=== PATIENT | female | born 1960 | race American Indian/Alaskan Native ===

== ENCOUNTER 2017-12-12 12:45 | Inpatient (IN) | payer MEDICARE ==
[2017-12-12] MEDS ORDERED: D5NS 1,000 ML IV SCH (14:00)
[2017-12-12] MEDS ORDERED: VITAMIN B-1 100 MG, FOLVITE 1 MG, INFUVITE 10 ML in NACL 0.9% 1000 ML 1,000 ML IV ONE (14:30)
[2017-12-12 14:46] LABS: Basophils # (Auto) 0.1 K/mm3 (0.0-0.1); Basophils % (Auto) 0.7 % (0.0-1.8); Eosinophils # (Auto) 0.1 K/mm3 (0.0-0.4); Hematocrit 38.6 % (30.3-42.9); Hemoglobin 12.9 gm/dl (10.1-14.3); Lymphocytes # (Auto) 3.5 K/mm3 (1.2-5.4); Lymphocytes % (Auto) 48.8 % (13.4-35.0); Mean Corpuscular HGB Conc 33 % (30-34); Mean Corpuscular Hemoglobin 31 pg (28-32); Mean Corpuscular Volume 91 fl (79-97); Monocytes # (Auto) 0.6 K/mm3 (0.0-0.8); Monocytes % (Auto) 7.7 % (0.0-7.3); Platelet Count 180 K/mm3 (140-440); Red Blood Count 4.23 M/mm3 (3.65-5.03); Red Cell Distribution Width 12.2 % (13.2-15.2)
[2017-12-12] MEDS ORDERED: DESYREL PO PRN (15:04)
[2017-12-12 15:07] LABS: Alanine Aminotransferase 43 units/L (7-56); Albumin 4.4 g/dL (3.9-5); BUN/Creatinine Ratio 33; Blood Urea Nitrogen 13 mg/dL (7-17); Calcium 9.7 mg/dL (8.4-10.2); Hemolysis Index 4
[2017-12-12 15:09] LABS: Lipase 20 units/L (13-60)
[2017-12-12] MEDS ORDERED: HABITROL TD PRN (15:09)
[2017-12-12] MEDS ORDERED: TYLENOL PO PRN ×2 (15:10→21:34)
[2017-12-12] MEDS ORDERED: MOTRIN PO PRN (15:11)
[2017-12-12] MEDS ORDERED: SENOKOT PO PRN (15:12)
[2017-12-12] MEDS ORDERED: IMODIUM PO PRN (15:12)
[2017-12-12] MEDS ORDERED: DULCOLAX PR PRN (15:12)
[2017-12-12] MEDS ORDERED: ALUM-MAG HYDROX-SIMETH 200-200-20MG/5ML PO PRN (15:14)
[2017-12-12] MEDS ORDERED: ZOFRAN IV PRN ×2 (15:15→21:34)
[2017-12-12] MEDS ORDERED: ZOFRAN PO PRN (15:16)
[2017-12-12] MEDS ORDERED: ATIVAN IV PRN ×2 (15:21→15:24)
[2017-12-12] MEDS ORDERED: ROBAXIN PO PRN (15:22)
[2017-12-12] MEDS ORDERED: BENTYL PO PRN (15:22)
[2017-12-12] MEDS ORDERED: VISTARIL PO PRN (15:23)
[2017-12-12] MEDS ORDERED: REQUIP PO PRN (15:50)
[2017-12-12] MEDS ORDERED: VISTARIL IM PRN (15:51)
[2017-12-12] MEDS: ATIVAN PO SCH ×3 (17:43→20:10)
[2017-12-12] MEDS: CATAPRES PO SCH ×3 (17:43→23:08)
--- NOTE | 2017-12-12 21:03 | History and Physical Report ---
History of Present Illness Date of examination: 12/12/17 Date of admission: 12/12/17 13:42 Chief complaint: Chief complaint: Direct admission for alcohol dependence and substance abuse in the form of crack cocaine. History of present illness: History of present illness: 57-year-old -[place] female with history of EtOH abuse and crack cocaine dependence for the last many years comes in for detoxification and stabilization. Patient has been consuming all called initially in lower quantities at the age of 25. Patient has been doing 12 pack beer for many years in the last 10-15 years. Patient has been off alcohol for 15 years and crack cocaine for 15 years but unable to tell me and what age she stopped them and what age she restarted. The patient is about 12 beers every day and also smokes crack cocaine on a regular basis. Patient also has a schizophrenia and is noncompliant with her medications because of substance abuse. Patient wants to be stabilized here and be admitted to [facility] substance abuse center for further treatment. Patient does not have any withdrawal symptoms at this point. Not tremulous. No fever no chills. No shortness of breath. Past History Past Medical History: other (schizophrenia) Past Surgical History: No surgical history Social history: smoking, alcohol abuse (crack cocaine smoking), full code, other Family history: hypertension Medications and Allergies Allergies Allergy/AdvReac Type Severity Reaction Status Date / Time haloperidol [From Haldol] Allergy MAKES PT Unverified 12/12/17 13:43 WALKING STIFF. Home Medications Medication Instructions Recorded Confirmed Last Taken Type No Known Home Medications [No 12/12/17 12/12/17 Unknown History Reported Home Medications] Active Meds: Active Medications Acetaminophen (Tylenol) 500 mg PO Q4H PRN PRN Reason: Fever >100.4 Al Hydrox/Mg Hydrox/Simethicone (Alum-Mag Hydrox-Simeth [id number]/5ml) 30 ml PO Q6H PRN PRN Reason: Indigestion Bisacodyl (Dulcolax) 10 mg VT QDAY PRN PRN Reason: Laxative Effect Clonidine HCl (Catapres) 0.1 mg PO Q4HR YOLI Last Admin: 12/12/17 17:44 Dose: Not Given Dicyclomine HCl (Bentyl) 20 mg PO Q6H PRN PRN Reason: Dyspepsia Folic Acid (Folvite) 1 mg PO DAILY [facility] Hydroxyzine HCl (Vistaril) 50 mg IM Q6H PRN PRN Reason: BREAKTHROUGH ANXIETY Hydroxyzine Pamoate (Vistaril) 50 mg PO Q6H PRN PRN Reason: Anxiety Dextrose/Sodium Chloride (D5ns) 1,000 mls @ 100 mls/hr IV DIRECT YOLI Thiamine HCl 100 mg/ Folic Acid 1 mg/ Multivitamins/Minerals 10 ml/ Sodium Chloride 1,011.2 mls @ 150 mls/hr IV ONCE ONE Stop: 12/12/17 21:14 Last Admin: 12/12/17 17:32 Dose: 150 mls/hr Ibuprofen (Motrin) 600 mg PO Q8H PRN PRN Reason: Pain, Mild <5 Loperamide HCl (Imodium) 2 mg PO Q8HR PRN PRN Reason: Diarrhea Lorazepam (Ativan) 2 mg IV Q4H PRN PRN Reason: SEIZURE Lorazepam (Ativan) 1 mg IV Q4H PRN PRN Reason: Agitation Lorazepam (Ativan) 1 mg PO Q4H [facility] Stop: 12/13/17 12:01 Last Admin: 12/12/17 20:10 Dose: Not Given Lorazepam (Ativan) 1 mg PO Q6H [facility] Stop: 12/14/17 10:01 Lorazepam (Ativan) 1 mg PO Q8H [facility] Stop: 12/15/17 08:01 Methocarbamol (Robaxin) 750 mg PO Q6H PRN PRN Reason: Muscle Spasm/ACHES Multivitamins (Theragran Tab) 1 each PO DAILY [facility] Nicotine (Habitrol) 21 mg TD DAILY PRN PRN Reason: Nicotine Cravings Ondansetron HCl (Zofran) 4 mg IV Q6H PRN PRN Reason: Nausea And Vomiting Ondansetron HCl (Zofran) 4 mg PO Q6HR PRN PRN Reason: Nausea And Vomiting Ropinirole HCl (Requip) 0.5 mg PO Q12H PRN PRN Reason: RESTLESS LEGS Senna (Senokot) 16.4 mg PO QHS PRN PRN Reason: Laxative Effect Thiamine HCl (Vitamin B-1) 100 mg PO QDAY [facility] Trazodone HCl (Desyrel) 50 mg PO QHS PRN PRN Reason: Insomnia Review of Systems All systems: negative Constitutional: no weight loss, no weight gain, no fever, no chills Ears, nose, mouth and throat: no swelling in mouth, no swelling in throat Breasts: deferred Cardiovascular: no chest pain, no orthopnea, no palpitations, no rapid/ irregular heart beat, no edema Respiratory: no cough, no cough with sputum, no excessive sputum, no hemoptysis , no shortness of breath, no dyspnea on exertion Gastrointestinal: no abdominal pain, no nausea, no vomiting, no diarrhea, no constipation, no change in bowel habits, no hematemesis, no coffee ground emesis Genitourinary Female: no dysuria, no urinary frequency, no urgency, no stress incontinence, no post void dribbling, no incomplete emptying, no urge incontinence Rectal: no pain Musculoskeletal: no neck stiffness, no neck pain, no shooting arm pain, no arm numbness/tingling, no low back pain, no shooting leg pain, no leg numbness/ tingling, no redness of joints Integumentary: no rash, no pruritis, no redness, no sores, no wounds, no jaundice, no boils Neurological: no paralysis, no weakness, no parathesias, no numbness, no seizures, no syncope Psychiatric: no anxiety, no memory loss, no change in sleep habits, no sleep disturbances, no insomnia, no hypersomnia, no change in appetite, no change in libido, no suicidal ideation, no disorientation, no hallucinations Endocrine: no cold intolerance, no heat intolerance, no polyphagia, no excessive thirst, no polydipsia, no polyuria, no nocturia Hematologic/Lymphatic: no easy bruising, no easy bleeding Allergic/Immunologic: no urticaria, no allergic rhinitis, no wheezing Exam - Physical Exam Narrative exam: Lying in bed comfortably. No signs of withdrawal - Constitutional Vitals: Temp Pulse Resp BP Pulse Ox 98.5 F 64 18 119/62 99 12/12/17 19:52 12/12/17 19:52 12/12/17 19:52 12/12/17 19:52 12/12/17 19:52 General appearance: Present: no acute distress, well-nourished - EENT Eyes: Present: PERRL ENT: hearing intact, clear oral mucosa - Neck Neck: Present: supple, normal ROM - Respiratory Respiratory effort: normal Respiratory: bilateral: CTA - Cardiovascular Heart rate: 54 Rhythm: regular Heart Sounds: Present: S1 & S2. Absent: rub, click - Extremities Extremities: no ischemia, pulses intact, pulses symmetrical, No edema Peripheral Pulses: within normal limits - Abdominal General gastrointestinal: Present: soft, non-tender, non-distended, normal bowel sounds Female genitourinary: Present: normal - Integumentary Integumentary: Present: clear, warm, dry - Musculoskeletal Musculoskeletal: gait normal, strength equal bilaterally - Psychiatric Psychiatric: appropriate mood/affect, intact judgment & insight - Neurologic Neurologic: CNII-XII intact, moves all extremities - Allied Health Allied health notes reviewed: nursing, case management Results - Labs CBC & Chem 7: 12/12/17 14:04 12/12/17 14:04 Labs: Laboratory Last Values WBC 7.2 K/mm3 (4.5-11.0) 12/12/17 14:04 RBC 4.23 M/mm3 (3.65-5.03) 12/12/17 14:04 Hgb 12.9 gm/dl (10.1-14.3) 12/12/17 14:04 Hct 38.6 % (30.3-42.9) 12/12/17 14:04 MCV 91 fl (79-97) 12/12/17 14:04 MCH 31 pg (28-32) 12/12/17 14:04 MCHC 33 % (30-34) 12/12/17 14:04 RDW 12.2 % (13.2-15.2) L 12/12/17 14:04 Plt Count 180 K/mm3 (140-440) 12/12/17 14:04 Lymph % (Auto) 48.8 % (13.4-35.0) H 12/12/17 14:04 [place] % (Auto) 7.7 % (0.0-7.3) H 12/12/17 14:04 Eos % (Auto) 2.0 % (0.0-4.3) 12/12/17 14:04 Baso % (Auto) 0.7 % (0.0-1.8) 12/12/17 14:04 Lymph # 3.5 K/mm3 (1.2-5.4) 12/12/17 14:04 [place] # 0.6 K/mm3 (0.0-0.8) 12/12/17 14:04 Eos # 0.1 K/mm3 (0.0-0.4) 12/12/17 14:04 Baso # 0.1 K/mm3 (0.0-0.1) 12/12/17 14:04 Seg Neutrophils % 40.8 % (40.0-70.0) 12/12/17 14:04 Seg Neutrophils # 3.0 K/mm3 (1.8-7.7) 12/12/17 14:04 PT 13.7 Sec. (12.2-14.9) 12/12/17 14:04 INR 1.00 (0.87-1.13) 12/12/17 14:04 Sodium 137 mmol/L (137-145) 12/12/17 14:04 Potassium 4.0 mmol/L (3.6-5.0) 12/12/17 14:04 Chloride 97.3 mmol/L (98-107) L 12/12/17 14:04 Carbon Dioxide 29 mmol/L (22-30) 12/12/17 14:04 Anion Gap 15 mmol/L 12/12/17 14:04 BUN 13 mg/dL (7-17) 12/12/17 14:04 Creatinine 0.4 mg/dL (0.7-1.2) L 12/12/17 14:04 Estimated GFR > 60 ml/min 12/12/17 14:04 BUN/Creatinine Ratio 33 % 12/12/17 14:04 Glucose 83 mg/dL (65-100) 12/12/17 14:04 Calcium 9.7 mg/dL (8.4-10.2) 12/12/17 14:04 Total Bilirubin 0.90 mg/dL (0.1-1.2) 12/12/17 14:04 AST 46 units/L (5-40) H 12/12/17 14:04 ALT 43 units/L (7-56) 12/12/17 14:04 Alkaline Phosphatase 62 units/L (35-129) 12/12/17 14:04 Total Protein 8.1 g/dL (6.3-8.2) 12/12/17 14:04 Albumin 4.4 g/dL (3.9-5) 12/12/17 14:04 Albumin/Globulin Ratio 1.2 % 12/12/17 14:04 Amylase 55 units/L (27-131) 12/12/17 14:04 Lipase 20 units/L (13-60) 12/12/17 14:04 Plasma/Serum Alcohol < 0.01 % (0-0.07) 12/12/17 14:04 - Imaging and Cardiology EKG: report reviewed (54/m sinus rhythm minimal ST elevation in anterior leads) Assessment and Plan Advance Directives: Yes (full code) VTE prophylaxis?: Chemical Plan of care discussed with patient/family: Yes - Patient Problems (1) EtOH dependence Current Visit: Yes Status: Chronic Qualifiers: Substance use status: in withdrawal Plan to address problem: Patient needs stabilization. Patient initiated on IV fluids banana bag and Ativan when necessary along with trazodone thiamine and folic acid. Patient also initiated on methocarbamol for muscle aches dicyclomine for abdominal discomfort hydroxyzine for mild anxiety and lorazepam 1 mg IV push every 4 hours for severe anxiety is the patient is not responding to lorazepam taper. (2) Cocaine abuse Current Visit: Yes Status: Chronic Plan to address problem: Patient initiated on remote telemetry clonidine 0.1 mg every 4 hours methocarbamol 750 mg every 6 hours when necessary ropinirole 0.5 mg 1 tablet every 12 hours when necessary for restless legs hydroxyzine for mild anxiety. (3) Schizophrenia in remission Current Visit: Yes Status: Chronic Plan to address problem: Patient is started on perphenazine and Cogentin (4) DVT prophylaxis Current Visit: Yes Status: Acute Plan to address problem: Heparin subcutaneously 5000 units every 12
[2017-12-12] MEDS ORDERED: PERCOCET 5/325 PO PRN (21:34)
[2017-12-12] MEDS ORDERED: SODIUM CHLORIDE FLUSH SYRINGE 10 ML IV PRN (21:34)
[2017-12-12] MEDS ORDERED: MORPHINE IV PRN (21:34)
[2017-12-12] MEDS ORDERED: TRILAFON PO PRN (21:43)
[2017-12-12] MEDS ORDERED: PEPCID IV SCH (22:00)
[2017-12-12] MEDS: COGENTIN PO SCH (23:07)
[2017-12-12] MEDS: SODIUM CHLORIDE FLUSH SYRINGE 10 ML IV SCH (23:07)
[2017-12-13] MEDS: ATIVAN PO SCH ×4 (00:35→11:21)
[2017-12-13] MEDS: CATAPRES PO SCH ×4 (01:42→15:10)
[2017-12-13 06:03] LABS: Hematocrit 37.2 % (30.3-42.9); Hemoglobin 12.2 gm/dl (10.1-14.3); Mean Corpuscular HGB Conc 33 % (30-34); Mean Corpuscular Hemoglobin 30 pg (28-32); Mean Corpuscular Volume 92 fl (79-97); Platelet Count 146 K/mm3 (140-440); Red Blood Count 4.03 M/mm3 (3.65-5.03); Red Cell Distribution Width 12.2 % (13.2-15.2)
[2017-12-13 06:48] LABS: Alanine Aminotransferase 42 units/L (7-56); Albumin 3.7 g/dL (3.9-5); BUN/Creatinine Ratio 28; Blood Urea Nitrogen 11 mg/dL (7-17); Hemolysis Index 10
[2017-12-13 07:56] LABS: Anisocytosis 1+; Band Neutrophils # (Manual) 0.1 K/mm3; Ovalocytes Rare; Platelet Estimate Appears Decreased; Tear Drop Cells Rare; Total Cells Counted 100
[2017-12-13] MEDS ORDERED: VITAMIN B-1 PO SCH (10:00)
[2017-12-13] MEDS ORDERED: THERAGRAN Tab PO SCH (10:00)
[2017-12-13] MEDS ORDERED: FOLVITE PO SCH (10:00)
[2017-12-13] MEDS ORDERED: PEPCID PO SCH (10:00)
[2017-12-13 10:07] VITALS: BP 116/58
[2017-12-13] MEDS: SODIUM CHLORIDE FLUSH SYRINGE 10 ML IV SCH (10:09)
[2017-12-13] MEDS: COGENTIN PO SCH (10:13)
[2017-12-13 12:18] LABS: Bilirubin,Urine NEG (Negative); Blood,Urine NEG (Negative); Color,Urine Yellow (Yellow); Protein,Urine <15 mg/dL mg/dL (Negative); RBC,Urine < 1.0 /HPF (0.0-6.0); Urobilinogen,Urine < 2.0 mg/dL (<2.0)
[2017-12-13 12:25] LABS: Amphetamine Screen,Urine PRESUMPTIVE NEGATIVE; Benzodiazepines Screen,Urine PRESUMPTIVE NEGATIVE; Cannabinoid Screen,Urine PRESUMPTIVE NEGATIVE; Methadone Screen,Urine PRESUMPTIVE NEGATIVE; Opiate Screen,Urine PRESUMPTIVE NEGATIVE
[2017-12-13 12:40] LABS: Cocaine Screen,Urine PRESUMPTIVE POSITIVE
--- NOTE | 2017-12-13 14:51 | Discharge Summary ---
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 Place consult to:: Psychiatry Notified:: FARZAD Phone number called:: [phone] Was contact made?: Yes If yes, spoke with:: FARZAD Time called:: 16:53 12/12/17 21:35 Consult to Dietitian/Nutrition [CONS] Routine Physician Instructions: Reason For Exam: Reason for Consult: Diet education 12/12/17 21:42 Consult to Mental Health [CONS] Routine Reason For Exam: EtOH dependence and schizophrenia Place consult to:: S Primary care physician: SCRIPT SUPERVISOR Hospitalization Condition: Stable Hospital course: Patient is a 57 yo woman with a history of schizophrenia, ETOH and cocaine abuse who was admitted to the [facility] for ETOH detox. She initially went to [place] for mental health issues but was turned away per patient. She is not in alcohol withdrawals, she is really not interested in cocaine detox as she says she is a "causal user". She actually wants mental health stabilization as she has been off her schizophrenic medications. She is not suicidal or homicidal. She appears to be homeless. Schizophrenia: refill her medications, she can go voluntary to [place] Etoh abuse and Cocaine abuse:counseling done. CIWA score is normal, not in withdrawals Disposition: DC-01 TO HOME OR SELFCARE Time spent for discharge: 32 minutes Core Measure Documentation - Palliative Care Palliative Care/ Comfort Measures: Not Applicable - Core Measures Any of the following diagnoses?: none - VTE Discharge Requirements Deep Vein Thrombosis/Pulmonary Embolism Present on Admission: No Has pt received <5 days of overlap therapy or INR<2.0: No Anticoagulant overlap therapy prescribed at discharge: No Contraindication No Overlap Therapy order at DC: Not Indicated Exam - Physical Exam Narrative exam: GEN: WDWN,unkempt, NAD, Awake, Alert, Orientated HEENT: NCAT, EOMI, PERRL, OP Clear NECK: supple, no adenopathy, no thyromegaly, no JVD CVS/HEART: RRR, normal S1S2, pulses present bilaterally CHEST/LUNGS: CTA B, Symmetrical chest expansion, good air entry bilaterally GI/Abdomen: soft, NTND, good bowel sounds, no guarding or rebound /Bladder: no suprapubic tenderness, no CVA or paraspinal tenderness EXT/Skin: no c/c/e, no obvious rash MSK: FROM x 4 Neuro: CN 2-12 grossly intact, no new focal deficits Psych: calm, disorganized, - Constitutional Vitals: Temp Pulse Resp BP Pulse Ox 98.5 F 61 18 116/58 100 12/13/17 08:02 12/13/17 10:07 12/13/17 08:02 12/13/17 10:07 12/13/17 08:02 Plan Activity: other (no strenous activities) Special Instructions: smoking cessation Follow up with: PRIMARY CARE, [Primary Care Provider] - 7 Days [facility] [Outside] - 48 Hours Prescriptions: traZODone [Desyrel] 50 mg PO QHS PRN #30 tablet PRN Reason: Insomnia Benztropine [Cogentin] 1 mg PO BID #60 tablet Nicotine [Habitrol] 21 mg TD DAILY PRN 7 Days patch PRN Reason: Nicotine Cravings Perphenazine [Trilafon] 4 mg PO TID 30 Days tablet Thiamine [Vitamin B-1] 100 mg PO QDAY #30 tablet
[2017-12-13] MEDS ORDERED: ATIVAN PO SCH (16:00)
[2017-12-14] MEDS ORDERED: ATIVAN PO SCH (16:00)
== END 2017-12-13 16:00 | disposition home or self-care (01) | DRG 885 ==
LOC: UNDOADMIN 12:45 → 2B-ACE 12:45
PROVIDERS: ADMIT Internal Medicine; ATTEND Internal Medicine
DX: F20.89 Other schizophrenia (principal); F10.20 Alcohol dependence, uncomplicated; F14.10 Cocaine abuse, uncomplicated; F17.290 Nicotine dependence, other tobacco product, uncomplicated; Z82.49 Family history of ischemic heart disease and other diseases of the circulatory system; Z91.19 Patient's noncompliance with other medical treatment and regimen; Z88.8 Allergy status to other drugs, medicaments and biological substances; Z71.51 Drug abuse counseling and surveillance of drug abuser
CPT/HCPCS: 36415; 80053; 80307; 80320; 81001; 82150; 83036; 83690; 85007; 85025; 85610; 93005; 93010; G0480; J3411; J7030

== ENCOUNTER 2018-02-19 20:34 | Emergency (ER) | payer MEDICARE ==
[2018-02-19 20:45] VITALS: BP 132/74
--- NOTE | 2018-02-19 21:42 | XRay Report ---
FINAL REPORT PROCEDURE: XR FOOT 3+V RT TECHNIQUE: RIGHT foot radiographs, AP, lateral, and oblique views. CPT 13671 HISTORY: foot pain COMPARISON: No prior studies are available for comparison. FINDINGS: Fracture (s) and/or Dislocation(s): None . Alignment: Moderate degree valgus deformity is noted at 1st metatarsophalangeal joint with subluxation.. Joint space(s): Normal . Soft tissues: Normal . Bone mineralization: Normal . Foreign bodies: None . Calcaneal spurring: None . IMPRESSION: Moderate degree hallux valgus..
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
== END 2018-02-19 22:29 | disposition home or self-care (01) ==
LOC: ED 20:34
DX: L84 Corns and callosities (principal); F20.9 Schizophrenia, unspecified; Z87.891 Personal history of nicotine dependence; Z88.8 Allergy status to other drugs, medicaments and biological substances
CPT/HCPCS: 99283

== ENCOUNTER 2018-12-11 12:11 | Emergency (ER) | payer MEDICARE ==
--- NOTE | 2018-12-11 12:45 | Emergency Department Report ---
Blank Doc - Documentation Documentation: This is a [id number] that presents with right foot callus and right ankle pain. This initial assessment/diagnostic orders/clinical plan/treatment(s) is/are subject to change based on patient's health status, clinical progression and re- assessment by fellow clinical providers in the ED. Further treatment and workup at subsequent clinical providers discretion. Patient/guardians urged not to elope from the ED as their condition may be serious if not clinically assessed and managed. Initial orders include: 1- Patient sent to [facility] for further evaluation and treatment 2- xray
[2018-12-11 12:47] VITALS: BP 121/74
--- NOTE | 2018-12-11 13:04 | XRay Report ---
RIGHT ANKLE, 3 views: History: right ankle pain. Findings: Mild soft tissue swelling is identified. No acute osseous abnormality or joint pathology is identified. The fifth metatarsal base is intact. Borderline osteopenia. Impression: Soft tissue swelling. No acute osseous injury.
--- NOTE | 2018-12-11 13:24 | Emergency Department Report ---
ED Lower Extremity HPI - General Chief Complaint: Extremity Injury, Lower Stated Complaint: RT FOOT/RT ANKLE PAIN Time Seen by Provider: 12/11/18 12:43 Source: patient Mode of arrival: Ambulatory Limitations: No Limitations - History of Present Illness Initial Comments: Ms. Hebert is a 58-year-old female who injured her ankle while stepping. She remember twisting her ankle. Injury occurred several weeks ago. He has persistent swelling. Mild pain. No other injury. MD Complaint: ankle injury (right ankle) -: Gradual, week(s) (2-3) Injury: Ankle: Right Type of Injury: inversion, eversion Place: street/outdoors Severity: mild Worsens With: weight bearing - Related Data Previous Rx's Medication Instructions Recorded Last Taken Type Acetaminophen [Acetaminophen TAB] 325 mg PO Q4H PRN #30 tablet 12/13/17 Unknown Rx Benztropine [Cogentin] 1 mg PO BID #60 tablet 12/13/17 Unknown Rx Nicotine [Habitrol] 21 mg TD DAILY PRN 7 Days patch 12/13/17 Unknown Rx Perphenazine [Trilafon] 4 mg PO TID 30 Days tablet 12/13/17 Unknown Rx Thiamine [Vitamin B-1] 100 mg PO QDAY #30 tablet 12/13/17 Unknown Rx traZODone [Desyrel] 50 mg PO QHS PRN #30 tablet 12/13/17 Unknown Rx Ibuprofen [Motrin] 600 mg PO Q8H PRN #30 tablet 02/19/18 Unknown Rx Allergies Allergy/AdvReac Type Severity Reaction Status Date / Time haloperidol [From Haldol] Allergy MAKES PT Unverified 12/12/17 13:43 WALKING STIFF. ED Review of Systems ROS: Stated complaint: RT FOOT/RT ANKLE PAIN Other details as noted in HPI Constitutional: denies: fever, malaise Musculoskeletal: joint swelling, arthralgia Neurological: denies: headache, numbness, paresthesias ED Past Medical Hx - Past Medical History Previous Medical History?: Yes Hx Hypertension: No (pt denies hx of htn) Hx Psychiatric Treatment: Yes (schizophrinia) Hx HIV: No Additional medical history: states was incarcerated on around 11/28/17; drug abuse--[facility] Crack Cocaine,scoliosis - Surgical History Past Surgical History?: Yes Additional Surgical History: 2 hernia surg, inguinal--pt denies prior surgeries - Social History Smoking Status: Never Smoker Substance Use Type: None - Medications Home Medications: Home Medications Medication Instructions Recorded Confirmed Last Taken Type Acetaminophen [Acetaminophen TAB] 325 mg PO Q4H PRN #30 tablet 12/13/17 Unknown Rx Benztropine [Cogentin] 1 mg PO BID #60 tablet 12/13/17 Unknown Rx Nicotine [Habitrol] 21 mg TD DAILY PRN 7 Days patch 12/13/17 Unknown Rx Perphenazine [Trilafon] 4 mg PO TID 30 Days tablet 12/13/17 Unknown Rx Thiamine [Vitamin B-1] 100 mg PO QDAY #30 tablet 12/13/17 Unknown Rx traZODone [Desyrel] 50 mg PO QHS PRN #30 tablet 12/13/17 Unknown Rx Ibuprofen [Motrin] 600 mg PO Q8H PRN #30 tablet 02/19/18 Unknown Rx ED Physical Exam - General Limitations: No Limitations General appearance: alert, in no apparent distress - Head Head exam: Present: atraumatic, normocephalic - Respiratory Respiratory exam: Absent: respiratory distress - Neurological Exam Neurological exam: Present: alert, oriented X3 - Psychiatric Psychiatric exam: Present: normal mood, flat affect - Skin Skin exam: Present: warm, dry, intact, normal color - Other Other exam information: Right Ankle: Mild global swelling no erythema no warmth or deformity ED Course Vital Signs 12/11/18 12:44 Temperature 98.8 F Pulse Rate 65 Respiratory 16 Rate Blood Pressure 121/74 O2 Sat by Pulse 99 Oximetry ED Lower Extremity MDM - Radiology Data Radiology results: report reviewed Right ankle radiographs: Soft tissue swelling no bony abnormality - Medical Decision Making Right ankle sprain: Filemon wrap applied under my supervision by nursing staff. After application of filemon wrap to the right ankle extremity was neurovascularly intact with normal alignment. Critical care attestation.: If time is entered above; I have spent that time in minutes in the direct care of this critically ill patient, excluding procedure time. ED Disposition Clinical Impression: Right ankle sprain Disposition: DC-01 TO HOME OR SELFCARE Is pt being admited?: No Does the pt Need Aspirin: No Condition: Stable Instructions: Ankle Sprain (ED) Referrals: DARREN GENAO MD [Staff Physician] - 3-5 Days
== END 2018-12-11 13:34 | disposition home or self-care (01) ==
LOC: ED 12:11
DX: S93.401A Sprain of unspecified ligament of right ankle, initial encounter (principal); Z88.8 Allergy status to other drugs, medicaments and biological substances; X50.1XXA Overexertion from prolonged static or awkward postures, initial encounter; Y93.89 Activity, other specified; Y92.488 Other paved roadways as the place of occurrence of the external cause; Y99.8 Other external cause status
CPT/HCPCS: 99283

== ENCOUNTER 2019-03-22 11:49 | Emergency (ER) | payer MEDICARE ==
[2019-03-22 12:01] VITALS: BP 137/89
--- NOTE | 2019-03-22 12:01 | Event Note ---
ED Screening Note Date of service: 03/22/19 Time: 11:56 ED Screening Note: This is a 59 y.o. F. that presents to the ER with psychosis. Patient states there are headphones in her head that is telling her they will use her for property and walk the streets. She is at [facility]. Used crack cocaine 3 weeks ago. Patient states off mental health medication for 3 weeks. PMH schizophrenia, ETOH, & substance abuse. This initial assessment/diagnostic orders/clinical plan/treatment(s) is/are subject to change based on patients health status, clinical progression and re- assessment by fellow clinical providers in the ED. Further treatment and workup at subsequent clinical providers discretion. Patient/guardian urged not to elope from the ED as their condition may be serious if not clinically assessed and managed. Initial orders include: Labs <ZARA WISEMAN - Last Filed: 03/22/19 11:56> ED Screening Note: This initial assessment/diagnostic orders/clinical plan/treatment(s) is/are subject to change based on patients health status, clinical progression and re- assessment by fellow clinical providers in the ED. Further treatment and workup at subsequent clinical providers discretion. Patient/guardian urged not to elope from the ED as their condition may be serious if not clinically assessed and managed. Initial orders include: A physician and/or other qualified medical personnel has recommended that the patient receive further examination and/or treatment beyond their Medical Screening Exam. The risks and benefits were explained. The patient was informed of their right to emergency care. Patient left before final disposition of their medical condition. This note has been generated by me, Dr. Perico Smith III, MD, the Supervisor Correspondence Section for the emergency department. I have not seen this patient personally. <PERICO SMITH - Last Filed: 03/26/19 19:00>
== END 2019-03-22 15:20 | disposition left against medical advice (07) ==
LOC: ED 11:49
DX: F22 Delusional disorders (principal); F20.9 Schizophrenia, unspecified; F10.10 Alcohol abuse, uncomplicated; Z88.8 Allergy status to other drugs, medicaments and biological substances

== ENCOUNTER 2019-09-02 12:01 | Emergency (ER) | payer MEDICARE ==
[2019-09-02 12:37] VITALS: BP 96/45
== END 2019-09-03 06:02 ==
LOC: ED 12:01
DX: Z53.21 Procedure and treatment not carried out due to patient leaving prior to being seen by health care provider (principal)